=== PATIENT | male | born 1995 | race Caucasian/White ===

== ENCOUNTER 2023-12-02 06:20 | Emergency (ER) | payer BC, SELFPAY ==
[2023-12-02 06:23] VITALS: BP 121/73; PULSE 52; TEMP 36.7; O2SAT 100; BMI 25.4
[2023-12-02 06:31] VITALS: O2SAT 100
--- NOTE | 2023-12-02 06:32 | PC.NURSE ---
Patient to ED with back pain that started yesterday around 10 AM after he was unloading a truckload of scrap metal. The pain is across his lower back and he is having muscle spasms. He denies weakness and numbness/tingling down his legs. He has not taken any medications, he has only applied an icy hot patch for pain relief. He has had a lower back injury in the past.
--- NOTE | 2023-12-02 06:42 | ED_ITS ---
HPI HPI - Back Pain/Injury General Chief Complaint: Back Pain/Injury Stated Complaint: BACK PAIN Time Seen by Provider: 12/02/23 06:40 Source: patient Mode of arrival: walk-in Limitations: no limitations History of Present Illness HPI Narrative: repetitive lifting yesterday. Believes he over did it. Did not fall.. Back sore all night. No involvement of his lower extremities. suppose to work today but doesn't feel he can. 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 no fever Similar muscular injury to his back in the past. No problem walking Related Data Home Medications ?Medication ?Instructions ?Recorded ?Confirmed No Known Home Medications 12/02/23 12/02/23 Allergies Allergy/AdvReac Type Severity Reaction Status Date / Time No Known Drug Allergies Allergy Verified 12/02/23 06:26 Opioid HPI Opioid Management Most Recent Opioid Data: 2 Last Pain Scale 8 12/02/23 06:29 Review of Systems 2 ROS0 Status of ROS 10 or more systems reviewed and unremark able except as noted in history and below Exam Constitutional Vital Signs, click to edit/add: Last Vital Signs Temp 98.0 F 12/02/23 06:23 Pulse 52 L 12/02/23 06:23 Resp 16 12/02/23 06:23 BP 121/73 12/02/23 06:23 Pulse Ox 100 12/02/23 06:31 O2 Del Method Room Air 12/02/23 06:31 Common normals: no apparent distress, average body habitus, oriented x3, no limitations, healthy appearing, alert and well nourished [facility] [place] Common normals: normocephalic and head/scalp atraumatic Eye Common normals: EOMs intact bilaterally and conjunctivae normal Respiratory Common normals: normal respiratory effort, no retractions, no use of accessory muscles and clear to auscultation bilaterally Cardio Common normals: regular rate, regular rhythm, S1 normal heart sound and S2 normal heart sound GI Common normals: Normal to inspection, nondistended, normoactive bowel sounds present and soft to palpation Back & Pelvis Back image (male): 2 1. tender bilat lumbar paravertebral Extremity Common normals: normal to inspection and full ROM Neuro Common normals: oriented x3, CN's II-XII intact bilaterally, moves all extremities and no focal motor deficits Psych Appearance: grossly normal Course Vital Signs Vital signs: Vital Signs Temperature 98.0 F 12/02/23 06:23 Pulse Rate 52 L 12/02/23 06:23 Respiratory Rate 16 12/02/23 06:23 Blood Pressure 121/73 12/02/23 06:23 Pulse Oximetry 100 12/02/23 06:23 Oxygen Delivery Method Room Air 12/02/23 06:23 Temperature 98.0 F 12/02/23 06:23 Pulse Rate 52 L 12/02/23 06:23 Respiratory Rate 16 12/02/23 06:23 Blood Pressure 121/73 12/02/23 06:23 Pulse Oximetry 100 12/02/23 06:31 Oxygen Delivery Method Room Air 12/02/23 06:31 MDM - Back Pain/Injury MDM Narrative Medical decision making narrative: presents with muscular strain injury of his lower back from repetitive heavy lifting of sheet metal yesterday. did not fall. no radicular symptoms. medicated with Toradol in the department and discharged home with zanaflex. Advised to follow up with his family doctor tomorrow for recheck Discharge Plan Discharge Stand Alone Forms: Portal Instructions Chief Complaint: Back Pain/Injury Clinical Impression: Strain of lumbar region Patient Disposition: Home, Self-Care Prescriptions / Home Meds: No Action No Known Home Medications Print Language: [place] Instructions: Muscle Strain (ED), Low Back Strain (ED) Additional Instructions: follow up with your doctor tomorrow for recheck Referrals: Physician,Non-Staff, MD [Primary Care Provider] - 1 week
[2023-12-02] MEDS: KETOROLAC TROMETHAMINE 60 MG/2 ML VIAL IM (06:52)
== END 2023-12-02 07:00 | disposition home or self-care (01) ==
PROVIDERS: Emergency Provider Internal Medicine
DX: S39.012A Strain of muscle, fascia and tendon of lower back, initial encounter (principal); X50.3XXA Overexertion from repetitive movements, initial encounter
CPT/HCPCS: 96372; 99284